=== PATIENT | female | born 1955 | race Caucasian/White ===

== ENCOUNTER 2021-12-15 10:31 | Outpatient (REF) | payer OTHER, SELFPAY ==
[2021-12-15 11:44] LABS: MANUAL DIFF FLAG NO
[2021-12-15 12:02] LABS: Basophils Percent Auto 0.5 % (0-2); Eosinophils Absolute Auto 0.2 X10*3/uL (0.0-0.4); Eosinophils Percent Auto 3.2 % (0-4); Hematocrit 35.3 % (37.0-47.0); Hemoglobin 10.9 g/dl (12.0-16.0); Imm Gran Abs Auto 0.03 X10*3/uL (0.00-0.03); Imm Gran Pct Auto 0.4 % (0.0-0.4); Lymphocytes Absolute Auto 2.5 X10*3/uL (1.2-4.9); Lymphocytes Percent Auto 32.9 % (20-40); Mean Corpuscular HGB Conc 30.9 g/dl (31.0-35.0); Mean Corpuscular Hemoglobin 24.7 pg (27.0-33.0); Mean Platelet Volume 9.7 fL (9.4-12.3); Monocytes Absolute Auto 0.3 X10*3/uL (0.1-1.2); Monocytes Percent Auto 4.5 % (2-11); Neutrophils Absolute Auto 4.4 x10*3/uL (2.0-8.3); Neutrophils Percent Auto 58.5 % (45-73); Platelet Count 325 X10*3/uL (160-400); Red Blood Count 4.41 X10*6/uL (4.20-5.50); Red Cell Distribution Width 16.9 % (11.0-16.0); White Blood Count 7.6 X10*3/uL (4.8-10.8)
[2021-12-15 12:08] LABS: D Dimer High Sensitivity 318 NG/ML
[2021-12-15 12:29] LABS: Anion Gap 12 (12-20); Blood Urea Nitrogen 15 mg/dL (9-16); Calcium 8.9 mg/dL (8.4-10.2); Carbon Dioxide 24 mmol/L (22-29); Chloride 106 mmol/L (96-108); Estimated Glomerular Filt Rate > 60; Glucose Random 91 mg/dL (60-115); Potassium 4.4 mmol/L (3.3-5.1); Sodium 138 mmol/L (135-145)
[2021-12-15 12:33] LABS: B Type Natriuretic Peptide 66 pg/mL (<100); Troponin-I High Sensitivity < 3.5 ng/L (<3.5-17.0)
[2021-12-15 12:55] LABS: Erythrocyte Sedimentation Rate 22 MM/HR (0-20)
[2021-12-18 17:11] LABS: Anti Nuclear Antibody Screen NEGATIVE (NEGATIVE)
== END 2021-12-15 10:32 | disposition home or self-care (01) ==
LOC: HO.LAB 10:31
PROVIDERS: PCP Internal Medicine; Visit Provider Hospitalist
DX: R79.89 Other specified abnormal findings of blood chemistry (principal); R06.00 Dyspnea, unspecified; G47.33 Obstructive sleep apnea (adult) (pediatric); J98.4 Other disorders of lung; M79.89 Other specified soft tissue disorders; R07.9 Chest pain, unspecified
CPT/HCPCS: 36415; 80048; 83880; 84484; 85025; 85379; 85652; 86038; 86039; 94618

== ENCOUNTER 2021-12-18 11:10 | Outpatient (REF) | payer OTHER, SELFPAY ==
--- NOTE | ~2021-12-18 | CT_ITS ---
EXAMINATION: CT ANGIOGRAM OF THE CHEST WITH AND WITHOUT CONTRAST (CT PULMONARY ANGIOGRAM FOR PE) CLINICAL INFORMATION: Reason for Exam R07.9 - Chest pain, unspecified COMPARISON: None TECHNIQUE: Prior to contrast administration, noncontrast localization images were obtained. Subsequently, multidetector volumetric imaging was performed from the thoracic inlet to below the diaphragms following the administration of 80 mL Omnipaque 350 intravenous contrast. No contrast reaction reported Sagittal, coronal, and MIP oblique sagittal reformatted images were obtained on the CT workstation, uploaded to PACS, and reviewed. This CT examination was performed using dose optimization techniques as appropriate, variously including the following: *Automated exposure control *Adjustment of mA and/or kV according to patient size (this includes techniques or standardized protocols for targeted exams where dose is matched to indication/reason for exam; i.e. extremities or head) *Use of iterative reconstruction technique Total exam dose-length product mGy-cm FINDINGS: QUALITY OF STUDY/CONTRAST BOLUS: Satisfactory. PULMONARY ARTERIES: No central or segmental pulmonary emboli. THORACIC AORTA: No aneurysm or dissection. LUNG: No focal consolidation, nodules or masses. PLEURA: No pleural effusion or pneumothorax. MEDIASTINUM: Normal heart size. No pericardial effusion. No hilar or mediastinal lymphadenopathy. No evidence of septal bowing or right heart strain. CHEST WALL/AXILLA: There is bilateral axillary lymphadenopathy. OSSEOUS STRUCTURES: There are degenerative changes of the spine. UPPER ABDOMEN: The liver may be low in attenuation. The spleen is appears upper normal in size. No reflux of contrast into the hepatic veins to suggest elevated right heart pressures. CT/CT angio chest PE protocol IMPRESSION: No evidence of pulmonary embolism. VTE: negative
[2021-12-18] MEDS: iohexoL 350 MG/ML 100 ML INFUS..BTL IV (12:00)
== END 2021-12-18 11:11 | disposition home or self-care (01) ==
LOC: HO.CT 11:10
PROVIDERS: PCP Internal Medicine; Visit Provider Hospitalist
DX: R07.9 Chest pain, unspecified (principal); R06.00 Dyspnea, unspecified; R78.89 Finding of other specified substances, not normally found in blood
CPT/HCPCS: 71275; Q9967

== ENCOUNTER → 2022-01-01 07:28 | Outpatient (REF) | payer OTHER, SELFPAY ==
--- NOTE | 2022-01-01 17:38 | PFT_ITS ---
INDICATION: Dyspnea. SPIROMETRY: The FEV1 to FVC of 89% with an FEV1 of 1.96 L, which is 78% predicted, FVC of 2.20 L which is 67% predicted. No significant response to bronchodilators noted. Maximum voluntary ventilation 84% predicted. LUNG VOLUMES: Total lung capacity 67% predicted with an expiratory reserve volume of 36% predicted. DIFFUSION CAPACITY: DLCO 67% predicted. COMPARISONS: None. INTERPRETATION: No obstructive ventilatory defects. No significant response to bronchodilators noted; however, the patient does have a restrictive ventilatory defect consistent with moderate restrictive lung disease. Therefore, underlying interstitial lung conditions need to be considered. The patient also has a decrease in the expiratory reserve volume, which is likely contributing to the restrictive lung disease as well. The patient does have mild to moderate diffusion impairment secondary to her restriction. It is reassuring that it does correct to normal when correcting for the alveolar volume. Clinical correlation warranted. MD NERY Griggs/MODL / [id number]
== END ==
LOC: HO.SL 07:28
PROVIDERS: PCP Internal Medicine; Visit Provider Hospitalist
DX: G47.33 Obstructive sleep apnea (adult) (pediatric) (principal); R06.00 Dyspnea, unspecified; J98.4 Other disorders of lung
CPT/HCPCS: 94060; 94727; 94729; 95806

== ENCOUNTER → 2022-01-15 09:17 | Outpatient (BNVA) | payer OTHER, SELFPAY | PROVIDERS: PCP Internal Medicine; Visit Provider Hospitalist | DX: R07.9 Chest pain, unspecified (principal); M79.89 Other specified soft tissue disorders; J98.4 Other disorders of lung; R06.00 Dyspnea, unspecified; G47.33 Obstructive sleep apnea (adult) (pediatric) ==

== ENCOUNTER → 2023-05-20 15:36 | Outpatient (BNVA) | payer OTHER, SELFPAY | PROVIDERS: PCP Internal Medicine; Visit Provider Hospitalist ==

== ENCOUNTER 2023-09-19 13:30 | Outpatient (AMB) | payer OTHER, SELFPAY ==
[2023-09-19 13:37] VITALS: PULSE 68; O2SAT 97; BMI 44.9
--- NOTE | 2023-09-19 13:37 | A.OFFVIS_ITS ---
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 However, for the last few months is got significantly worse. The patient was referred to Cardiology. She did have a full cardiac workup and per the patient the results were reassuring. Therefore the patient was referred to Pulmonary. On further questioning she does state that she was diagnosed with sleep apnea many years ago. She could not tolerate the therapy. She also has had issues with weight gain. She had been evaluated previously from a pulmonary standpoint and she did undergo pulmonary function studies demonstrating some degree of restrictive ventilatory defect in addition to that had a methacholine challenge which was negative for any hyperreactive airways or diagnosis of asthma still the patient has use respiratory inhalers at times. Patient also had a chest x-ray without any acute disease. We did go for 6 minutes walk test the patient became significantly winded with a dyspnea score of 8 with minimal activity. This is consistent with her symptoms. Heart rate did increase to about 100 and she was able to maintain a pulse ox of 95 percent. The patient recovered after 3 minutes improving her heart rate down to the 80s. The patient did develop chest pressure during the ambulation which resulted as terminating the walk after 100 yards. On further questioning she does have daytime drowsiness. Her Saint Stephens score is elevated 09/24. She has cardiovascular risk factors. the patient also has lower extremity edema. 01/15/2022 the patient is here for pulmon annie follow-up visit. She continues to have dyspnea on exertion. Moderate severity. Overall doing a little better. She responded well to the diuretic. In the 1st a she lost about 7 lb. The patient did have pulmonary function studies which we personally reviewed in the office. It appears that she has a moderate restrictive ventilatory defect. Due to that restriction she also has a mild to moderate diffusion impairment. No evidence of any obstruction. We did look at her CT scan of the chest demonstrating no evidence of any thromboembolic disease and no parenchymal lung disease to suggest interstitial lung disease at this time. Mainly here issue is hypo expansion of the lungs. Partly due to her body habitus. The patient also underwent a sleep study. The patient does have mild sleep apnea with an AHI of 11 events/ hour she does saturate down to the 70s briefly. They both of the sleep apnea was when she was lying supine. The patient would like to hold off on CPAP at this time. Her alternative will be positional therapy. She will look for a positional device to minimize sleeping on her back and her fairly on her left side which she did a lot better. Her blood work also reviewed demonstrating that she has anemia. The anemia could also be affecting her ability to gas exchange and subsequently affecting her diffusing capacity. 09/05/2022 the patient is here for a pulmonary follow-up visit. The patient still has similar complaints. She does complaint of dyspnea on exertion. Fzbx-an-[id number] severity. She has also developed a cough. The cough tends to be nonproductive and is irritating. Typically worse at nighttime. We did talk about considering underlying reflux disease. Patient should get risers from her bed as she is sleeping on her side and also she follow-up close reflux diet. We did talk about what to avoid and to focus on small meals and not to eat 3 hours before bedtime. In addition to that she continues to take a PPI. If no better consider barium swallow. I will also prescribe some cough medication. The patient also having significant daytime drowsiness. Her Saint Stephens score is elevated 12/24. She tried and failed CPAP in the past. I did talk to her about speaking to her dentist about considering an oral mandibular device. She will looking to. In meantime will perform an overnight oximetry while she is sleeping on her side to see if he still has any evidence of hypoxia or sleep apnea. We did review her last CT scan of the chest was back in December 23 demonstrating no evidence of any pulmonary emboli and also no parenchymal disease. 05/20/2023 the patient is here for a pulm onary follow-up visit. The patient overall has been doing fair. She has had issues where she is falling out of bed and also fallen down the stairs. She had a concussion and did have to go to the [facility] for that. She did have a CT scan of the brain which was reassuring. The patient also complains of shortness of breath. She did respond to the diuretics well but then she was only given a week worse. The patient is noticing increasing lower extremity edema her left leg more than the right. She is scheduled to see Cardiology at some point. The patient did have an overnight oximetry done demonstrating improved hypoxia while positional therapy. Seems like positional therapy is helping specially since she does not want to go back on CPAP. The patient does not have any evidence of hypoxia while sleeping on her side. The patient is taking multiple sleep aids including Ambien extended release and also gabapentin. She has been on Ambien for many years. She does have some issues with amnesia. The now with the falls that the patient should consider weaning off that medication. I did recommend she switch over to the immediate release Ambien 10 mg and then working off it that way she can wean off the medication. The patient will have follow-up in 3-4 months and will perform pulmonary function studies at that point. 09/19/2023 the patient is here for a pul monary follow-up visit. She started having worsening cough for the last few weeks. Mucus production moderate severity. Denies any fevers or chills. Likely postviral bacterial infection. Will go ahead and treat her with antibiotics. If no better she will benefit from prednisone. The patient also continues using the Ambien with good effect. Still from positional therapy with good effect. She still has lower extremity edema. She will be followed up closely with Cardiology. Likely will benefit from additional diuresis. 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) Review of Systems Const Reports daytime sleepiness and Denies night sweats ENT Denies change in voice, Denies lip swelling, Denies mouth pain, Reports nasal congestion, Reports nasal discharge and Denies tongue swelling Card Denies chest pain and Reports dyspnea on exertion Resp Reports cough and Reports dyspnea on exertion GI Denies abdominal pain Musc Denies no additional complaints Neuro Denies Neuro-related abnormal movements Psych Denies no additional complaints Hugh/Lymph Denies easy bleeding and Denies lymphadenopathy Aller/Immun Denies lip swelling and Denies tongue swelling Physical Exam Vital Signs: Last Vital Signs Pulse 68 09/19/23 13:37 Pulse Ox 97 09/19/23 13:37 Oxygen Delivery Method Room Air 09/19/23 13:37 BMI result Body Mass Index 44.9 Const General: alert Neck Neck: Yes normal visual inspection, Yes full ROM and Yes no lymphadenopathy Chest Chest palpation & inspection: normal inspection of the chest Resp Effort & Inspection: normal respiratory effort Auscultation: diminished lung sounds Cardio Rate: regular rate Rhythm: regular rhythm Heart sounds: S1 normal heart sound present and S2 normal heart sound present Peripheral pulses: femoral pulses present GI Palpation (GI): Soft to palpation and nontender Auscultation: normal bowel sounds Skin General skin exam: rashes and/or lesions noted Extrem General: Yes edema Assessment & Plan Assessment & Plan (1) Bronchitis: Code(s): J40 - Bronchitis, not specified as acute or chronic (2) Dyspnea: Code(s): R06.00 - Dyspnea, unspecified Qualifiers: Dyspnea type: dyspnea on exertion Qualified Code(s): R06.09 - Other forms of dyspnea (3) DAMARI (obstructive sleep apnea): Code(s): G47.33 - Obstructive sleep apnea (adult) (pediatric) (4) Chronic restrictive lung disease: Code(s): J98.4 - Other disorders of lung (5) Limb swelling: Code(s): M79.89 - Other specified soft tissue disorders Plan start Zpack start prednisone if no better CXR if no better continue positional therapy continue ambien as needed Benzonates as needed diuresis as tolerated GRAHAM as needed Follow-up in 3 months Orders: Orders XR chest 2V 09/19/23 R06.00 - Dyspnea, unspecified Medications: New prednisone PO daily; Take 2 tabs daily x 5 days, then 1 daily x 5 days 10 days 15 tabs 0RF azithromycin 500 mg PO DAILY 3 days 3 tabs 0RF Coding Level of Care Code Est Pt Level 4 (09494) Diagnoses Bronchitis J40 Dyspnea on exertion R06.09 Dyspnea type: dyspnea on exertion DAMARI (obstructive sleep apnea) G47.33 Chronic restrictive lung disease J98.4 Limb swelling M79.89 Time Spent (min) 17
== END 2023-09-19 13:55 | disposition home or self-care (01) ==
PROVIDERS: PCP Internal Medicine; Visit Provider Hospitalist
DX: J40 Bronchitis, not specified as acute or chronic (principal); R06.09 Other forms of dyspnea; G47.33 Obstructive sleep apnea (adult) (pediatric); J98.4 Other disorders of lung; M79.89 Other specified soft tissue disorders
CPT/HCPCS: 99214

== ENCOUNTER → 2023-09-19 13:30 | Outpatient (BNVA) | payer OTHER, SELFPAY | PROVIDERS: PCP Internal Medicine; Visit Provider Hospitalist | DX: J44.9 Chronic obstructive pulmonary disease, unspecified (principal) ==

== ENCOUNTER 2024-03-12 13:46 | Outpatient (AMB) | payer OTHER, SELFPAY ==
--- NOTE | 2024-03-12 13:56 | MHC.OFFVIS ---
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 However, for the last few months is got significantly worse. The patient was referred to Cardiology. She did have a full cardiac workup and per the patient the results were reassuring. Therefore the patient was referred to Pulmonary. On further questioning she does state that she was diagnosed with sleep apnea many years ago. She could not tolerate the therapy. She also has had issues with weight gain. She had been evaluated previously from a pulmonary standpoint and she did undergo pulmonary function studies demonstrating some degree of restrictive ventilatory defect in addition to that had a methacholine challenge which was negative for any hyperreactive airways or diagnosis of asthma still the patient has use respiratory inhalers at times. Patient also had a chest x-ray without any acute disease. We did go for 6 minutes walk test the patient became significantly winded with a dyspnea score of 8 with minimal activity. This is consistent with her symptoms. Heart rate did increase to about 100 and she was able to maintain a pulse ox of 95 percent. The patient recovered after 3 minutes improving her heart rate down to the 80s. The patient did develop chest pressure during the ambulation which resulted as terminating the walk after 100 yards. On further questioning she does have daytime drowsiness. Her Raymond score is elevated 10/24. She has cardiovascular risk factors. the patient also has lower extremity edema. 01/15/2022 the patient is here for pulmonary follow-up visit. She continues to have dyspnea on exertion. Moderate severity. Overall doing a little better. She responded well to the diuretic. In the 1st a she lost about 7 lb. The patient did have pulmonary function studies which we personally reviewed in the office. It appears that she has a moderate restrictive ventilatory defect. Due to that restriction she also has a mild to moderate diffusion impairment. No evidence of any obstruction. We did look at her CT scan of the chest demonstrating no evidence of any thromboembolic disease and no parenchymal lung disease to suggest interstitial lung disease at this time. Mainly here issue is hypo expansion of the lungs. Partly due to her body habitus. The patient also underwent a sleep study. The patient does have mild sleep apnea with an AHI of 11 events/ hour she does saturate down to the 70s briefly. They both of the sleep apnea was when she was lying supine. The patient would like to hold off on CPAP at this time. Her alternative will be positional therapy. She will look for a positional device to minimize sleeping on her back and her fairly on her left side which she did a lot better. Her blood work also reviewed demonstrating that she has anemia. The anemia could also be affecting her ability to gas exchange and subsequently affecting her diffusing capacity. 09/05/2022 the patient is here for a pulmonary follow-up visit. The patient still has similar complaints. She does complaint of dyspnea on exertion. Rqgk-qb-awhigerx severity. She has also developed a cough. The cough tends to be nonproductive and is irritating. Typically worse at nighttime. We did talk about considering underlying reflux disease. Patient should get risers from her bed as she is sleeping on her side and also she follow-up close reflux diet. We did talk about what to avoid and to focus on small meals and not to eat 3 hours before bedtime. In addition to that she continues to take a PPI. If no better consider barium swallow. I will also prescribe some cough medication. The patient also having significant daytime drowsiness. Her Raymond score is elevated 12/24. She tried and failed CPAP in the past. I did talk to her about speaking to her dentist about considering an oral mandibular device. She will looking to. In meantime will perform an overnight oximetry while she is sleeping on her side to see if he still has any evidence of hypoxia or sleep apnea. We did review her last CT scan of the chest was back in December 23 demonstrating no evidence of any pulmonary emboli and also no parenchymal disease. 05/20/2023 the patient is here for a pulmonary follow-up visit. The patient overall has been doing fair. She has had issues where she is falling out of bed and also fallen down the stairs. She had a concussion and did have to go to the [facility] for that. She did have a CT scan of the brain which was reassuring. The patient also complains of shortness of breath. She did respond to the diuretics well but then she was only given a week worse. The patient is noticing increasing lower extremity edema her left leg more than the right. She is scheduled to see Cardiology at some point. The patient did have an overnight oximetry done demonstrating improved hypoxia while positional therapy. Seems like positional therapy is helping specially since she does not want to go back on CPAP. The patient does not have any evidence of hypoxia while sleeping on her side. The patient is taking multiple sleep aids including Ambien extended release and also gabapentin. She has been on Ambien for many years. She does have some issues with amnesia. The now with the falls that the patient should consider weaning off that medication. I did recommend she switch over to the immediate release Ambien 10 mg and then working off it that way she can wean off the medication. The patient will have follow-up in 3-4 months and will perform pulmonary function studies at that point. 09/19/2023 the patient is here for a pulmonary follow-up visit. She started having worsening cough for the last few weeks. Mucus production moderate severity. Denies any fevers or chills. Likely postviral bacterial infection. Will go ahead and treat her with antibiotics. If no better she will benefit from prednisone. The patient also continues using the Ambien with good effect. Still from positional therapy with good effect. She still has lower extremity edema. She will be followed up closely with Cardiology. Likely will benefit from additional diuresis. 03/12/2024 the patient is here for a pulmonary follow-up visit. She does complaint of some increasing chest congestion and cough. Moderate severity. Also having increasing dyspnea on exertion. She has been using the Anoro inhaler. She also has a rescue inhaler. The patient also has a prescription for torsemide but she does not use it regularly. She is noticed some increasing lower extremity edema. Although she was diagnosed with arthritis and she does have asymmetrical edema primarily of the left extremity. Likely that her dyspnea is multifactorial. Although the chest congestion could represent some degree of asthmatic bronchitis. Will go ahead and switch her from Anoro to Trelegy to see if we can decrease the inflammation of the airways. the patient should also get a chest x-ray. If she worsens and for mucus gets more colored she can consider taking a Z-Brayden medications developing a infectious process the patient also urged to use her torsemide that she is having significant lower extremity edema and appears to be volume overload. 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) Review of Systems Const Reports daytime sleepiness and Denies night sweats ENT Denies change in voice, Denies lip swelling, Denies mouth pain, Reports nasal congestion, Reports nasal discharge and Denies tongue swelling Card Denies chest pain and Reports dyspnea on exertion Resp Reports chest congestion, Reports cough and Reports dyspnea on exertion GI Denies abdominal pain Musc Denies no additional complaints Neuro Denies Neuro-related abnormal movements Psych Denies no additional complaints Hugh/Lymph Denies easy bleeding and Denies lymphadenopathy Aller/Immun Denies lip swelling and Denies tongue swelling Physical Exam Vital Signs: Last Vital Signs Pulse 79 03/12/24 13:58 Pulse Ox 97 03/12/24 13:58 Oxygen Delivery Method Room Air 03/12/24 13:58 BMI result Body Mass Index 44.9 Const General: alert Neck Neck: Yes normal visual inspection, Yes full ROM and Yes no lymphadenopathy Chest Chest palpation & inspection: normal inspection of the chest Resp Effort & Inspection: normal respiratory effort Auscultation: diminished lung sounds Cardio Rate: regular rate Rhythm: regular rhythm Heart sounds: S1 normal heart sound present and S2 normal heart sound present Peripheral pulses: femoral pulses present GI Palpation (GI): Soft to palpation and nontender Auscultation: normal bowel sounds Skin General skin exam: rashes and/or lesions noted Extrem General: Yes edema Assessment & Plan Assessment & Plan (1) Bronchitis: Code(s): J40 - Bronchitis, not specified as acute or chronic (2) Dyspnea: Code(s): R06.00 - Dyspnea, unspecified Qualifiers: Dyspnea type: dyspnea on exertion Qualified Code(s): R06.09 - Other forms of dyspnea (3) DAMARI (obstructive sleep apnea): Code(s): G47.33 - Obstructive sleep apnea (adult) (pediatric) (4) Chronic restrictive lung disease: Code(s): J98.4 - Other disorders of lung (5) Limb swelling: Code(s): M79.89 - Other specified soft tissue disorders Plan start Trelegy stop Anoro start Fluticasone nasal spray CXR Zpack if no better continue positional therapy continue ambien as needed Benzonates as needed diuresis as tolerated GRAHAM as needed Follow-up in 6 months Orders: Orders XR chest 2V Today J40 - Bronchitis, not specified as acute or chronic Medications: New azithromycin 500 mg PO DAILY 5 days 5 tabs 0RF azithromycin 500 mg PO DAILY 5 tabs 0RF 5 days uxfvbmrcojl-qiubmijax-plmnbzge 200-62.5-25 mcg (Trelegy Ellipta) 1 inh inhalation DAILY 60 ea 12RF 30 days fluticasone propionate 50 mcg/actuation 2 sprays intranasal DAILY 15.8 mL 6RF 30 days J31.0 - Chronic rhinitis Coding Level of Care Code Est Pt Level 4 (21187) Diagnoses Bronchitis J40 Dyspnea on exertion R06.09 Dyspnea type: dyspnea on exertion DAMARI (obstructive sleep apnea) G47.33 Chronic restrictive lung disease J98.4 Limb swelling M79.89 Time Spent (min) 17
[2024-03-12 13:58] VITALS: PULSE 79; O2SAT 97; BMI 44.9
== END 2024-03-12 14:27 | disposition home or self-care (01) ==
PROVIDERS: PCP Internal Medicine; Visit Provider Hospitalist
DX: J40 Bronchitis, not specified as acute or chronic (principal); R06.09 Other forms of dyspnea; G47.33 Obstructive sleep apnea (adult) (pediatric); J98.4 Other disorders of lung; M79.89 Other specified soft tissue disorders
CPT/HCPCS: 99214

== ENCOUNTER → 2024-03-12 13:46 | Outpatient (BNVA) | payer OTHER, SELFPAY | PROVIDERS: PCP Internal Medicine; Visit Provider Hospitalist | DX: J44.9 Chronic obstructive pulmonary disease, unspecified (principal); R06.00 Dyspnea, unspecified ==

== ENCOUNTER 2024-09-18 08:48 | Outpatient (AMB) | payer MEDICARE, SELFPAY ==
[2024-09-18 09:00] VITALS: BP 128/70; PULSE 66; O2SAT 97; BMI 46.6
--- NOTE | 2024-09-18 09:00 | MHC.OFFVIS ---
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 However, for the last few months is got significantly worse. The patient was referred to Cardiology. She did have a full cardiac workup and per the patient the results were reassuring. Therefore the patient was referred to Pulmonary. On further questioning she does state that she was diagnosed with sleep apnea many years ago. She could not tolerate the therapy. She also has had issues with weight gain. She had been evaluated previously from a pulmonary standpoint and she did undergo pulmonary function studies demonstrating some degree of restrictive ventilatory defect in addition to that had a methacholine challenge which was negative for any hyperreactive airways or diagnosis of asthma still the patient has use respiratory inhalers at times. Patient also had a chest x-ray without any acute disease. We did go for 6 minutes walk test the patient became significantly winded with a dyspnea score of 8 with minimal activity. This is consistent with her symptoms. Heart rate did increase to about 100 and she was able to maintain a pulse ox of 95 percent. The patient recovered after 3 minutes improving her heart rate down to the 80s. The patient did develop chest pressure during the ambulation which resulted as terminating the walk after 100 yards. On further questioning she does have daytime drowsiness. Her Bergholz score is elevated 09/24. She has cardiovascular risk factors. the patient also has lower extremity edema. 09/18/2024 the patient is here for a pulmonary follow-up visit. She does complaint of some increasing chest congestion and cough. Moderate severity. Also having increasing dyspnea on exertion. She has been using the Anoro inhaler. She also has a rescue inhaler. The patient also has a prescription for torsemide but she does not use it regularly. She is noticed some increasing lower extremity edema. Although she was diagnosed with arthritis and she does have asymmetrical edema primarily of the left extremity. Likely that her dyspnea is multifactorial. Although the chest congestion could represent some degree of asthmatic bronchitis. Will go ahead and switch her from Anoro to Trelegy to see if we can decrease the inflammation of the airways. the patient should also get a chest x-ray. Based on her chronic bronchitis she will be a good candidate for daliresp. 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) Review of Systems Const Reports daytime sleepiness and Denies night sweats ENT Denies change in voice, Denies lip swelling, Denies mouth pain, Reports nasal congestion, Reports nasal discharge and Denies tongue swelling Card Denies chest pain and Reports dyspnea on exertion Resp Reports chest congestion, Reports cough and Reports dyspnea on exertion GI Denies abdominal pain Musc Denies no additional complaints Neuro Denies Neuro-related abnormal movements Psych Denies no additional complaints Hugh/Lymph Denies easy bleeding and Denies lymphadenopathy Aller/Immun Denies lip swelling and Denies tongue swelling Physical Exam Vital Signs: Last Vital Signs Pulse 66 09/18/24 09:00 BP 128/70 09/18/24 09:00 Pulse Ox 97 09/18/24 09:00 Oxygen Delivery Method Room Air 09/18/24 09:00 BMI result Body Mass Index 46.6 Const General: alert Neck Neck: Yes normal visual inspection, Yes full ROM and Yes no lymphadenopathy Chest Chest palpation & inspection: normal inspection of the chest Resp Effort & Inspection: normal respiratory effort Auscultation: diminished lung sounds Cardio Rate: regular rate Rhythm: regular rhythm Heart sounds: S1 normal heart sound present and S2 normal heart sound present Peripheral pulses: femoral pulses present GI Palpation (GI): Soft to palpation and nontender Auscultation: normal bowel sounds Skin General skin exam: rashes and/or lesions noted Extrem General: Yes edema Assessment & Plan Assessment & Plan (1) Bronchitis: Code(s): J40 - Bronchitis, not specified as acute or chronic Category: Medical (2) Dyspnea: Code(s): R06.00 - Dyspnea, unspecified Category: Medical Qualifiers: Dyspnea type: dyspnea on exertion Qualified Code(s): R06.09 - Other forms of dyspnea (3) DAMARI (obstructive sleep apnea): Code(s): G47.33 - Obstructive sleep apnea (adult) (pediatric) Category: Medical (4) Chronic restrictive lung disease: Code(s): J98.4 - Other disorders of lung Category: Medical (5) Limb swelling: Code(s): M79.89 - Other specified soft tissue disorders Category: Medical Plan continue Trelegy Fluticasone nasal spray start Daliresp CXR continue positional therapy continue ambien as needed Benzonates as needed diuresis as tolerated GRAHAM as needed Follow-up in 6 months Orders: Orders XR chest 2V 09/18/24 R06.09 - Other forms of dyspnea Medications: New roflumilast (Daliresp) 250 mcg PO DAILY 30 tabs 11RF 30 days J44.9 - Chronic obstructive pulmonary disease, unspecified Coding Level of Care Code Est Pt Level 4 (78732) Diagnoses Bronchitis J40 Dyspnea on exertion R06.09 Dyspnea type: dyspnea on exertion DAMARI (obstructive sleep apnea) G47.33 Chronic restrictive lung disease J98.4 Limb swelling M79.89 Time Spent (min) 16
== END 2024-09-18 09:24 | disposition home or self-care (01) ==
PROVIDERS: PCP Internal Medicine; Visit Provider Hospitalist
DX: J40 Bronchitis, not specified as acute or chronic (principal); R06.09 Other forms of dyspnea; G47.33 Obstructive sleep apnea (adult) (pediatric); J98.4 Other disorders of lung; M79.89 Other specified soft tissue disorders
CPT/HCPCS: 99214

== ENCOUNTER → 2024-09-18 08:48 | Outpatient (BNVA) | payer MEDICARE, SELFPAY | PROVIDERS: PCP Internal Medicine; Visit Provider Hospitalist | DX: R06.00 Dyspnea, unspecified (principal); J98.4 Other disorders of lung; J40 Bronchitis, not specified as acute or chronic; G47.33 Obstructive sleep apnea (adult) (pediatric); M79.89 Other specified soft tissue disorders | CPT/HCPCS: 99212 ==

== ENCOUNTER 2025-03-19 12:52 | Outpatient (AMB) | payer MEDICARE, SELFPAY ==
--- NOTE | 2025-03-19 12:57 | MHC.OFFVIS ---
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 However, for the last few months is got significantly worse. The patient was referred to Cardiology. She did have a full cardiac workup and per the patient the results were reassuring. Therefore the patient was referred to Pulmonary. On further questioning she does state that she was diagnosed with sleep apnea many years ago. She could not tolerate the therapy. She also has had issues with weight gain. She had been evaluated previously from a pulmonary standpoint and she did undergo pulmonary function studies demonstrating some degree of restrictive ventilatory defect in addition to that had a methacholine challenge which was negative for any hyperreactive airways or diagnosis of asthma still the patient has use respiratory inhalers at times. Patient also had a chest x-ray without any acute disease. We did go for 6 minutes walk test the patient became significantly winded with a dyspnea score of 8 with minimal activity. This is consistent with her symptoms. Heart rate did increase to about 100 and she was able to maintain a pulse ox of 95 percent. The patient recovered after 3 minutes improving her heart rate down to the 80s. The patient did develop chest pressure during the ambulation which resulted as terminating the walk after 100 yards. On further questioning she does have daytime drowsiness. Her [place] score is elevated 09/24. She has cardiovascular risk factors. the patient also has lower extremity edema. 09/18/2024 the patient is here for a pulmonary follow-up visit. She does complaint of some increasing chest congestion and cough. Moderate severity. Also having increasing dyspnea on exertion. She has been using the Anoro inhaler. She also has a rescue inhaler. The patient also has a prescription for torsemide but she does not use it regularly. She is noticed some increasing lower extremity edema. Although she was diagnosed with arthritis and she does have asymmetrical edema primarily of the left extremity. Likely that her dyspnea is multifactorial. Although the chest congestion could represent some degree of asthmatic bronchitis. Will go ahead and switch her from Anoro to Trelegy to see if we can decrease the inflammation of the airways. the patient should also get a chest x-ray. Based on her chronic bronchitis she will be a good candidate for daliresp. 03/19/2025 the patient is here for a pulmonary follow-up visit. She doing very well from a respiratory status. Her respiratory regimen has been working well for her. She is tolerating the Daliresp 250 mcg and also the Trelegy. She also continues with respiratory medications. She has not had to use her rescue inhaler and has not required any prednisone which is reassuring. Will go ahead and optimize her Daliresp by increasing her dose to the therapeutic dose at this time. The patient is also working on weight management. She has already lost about 25 lb with exercise in lifestyle changes. The patient however his having some issues with sciatica and knee pain and hip pain. She is going to be following up with a doctor regarding that. In the meantime will follow-up in a year's time if she has any issues prior to that she will call for an earlier assessment. 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) Review of Systems Const Denies chills, Denies fatigue, Denies fever(s), Denies weight gain and Denies weight loss ENT Denies dizziness, Denies lip swelling and Denies tongue swelling Card Denies chest pain, Denies leg edema, Denies lightheadedness, Denies palpitations, Denies dyspnea on exertion, Denies orthopnea and Denies other Resp Denies cough and Denies dyspnea on exertion GI Denies hematochezia and Denies change in stool character Musc Denies abnormal gait, Denies muscle weakness, Denies numbness, Denies radiating pain into limb and Denies tingling Neuro Denies abnormal gait, Denies dizziness, Denies numbness and Denies tingling Psych Denies no additional complaints Endo Denies fatigue and Denies palpitations Hugh/Lymph Denies easy bleeding and Denies lymphadenopathy Aller/Immun Denies lip swelling and Denies tongue swelling Physical Exam Vital Signs: Last Vital Signs Pulse 65 03/19/25 12:58 BP 130/86 03/19/25 12:58 Pulse Ox 95 03/19/25 12:58 Oxygen Delivery Method Room Air 03/19/25 12:58 BMI result Body Mass Index 43.7 Const General: alert Neck Neck: Yes normal visual inspection, Yes full ROM and Yes no lymphadenopathy Chest Chest palpation & inspection: normal inspection of the chest Resp Effort & Inspection: normal respiratory effort Auscultation: diminished lung sounds Cardio Rate: regular rate Rhythm: regular rhythm Heart sounds: S1 normal heart sound present and S2 normal heart sound present Peripheral pulses: femoral pulses present GI Palpation (GI): Soft to palpation and nontender Auscultation: normal bowel sounds Skin General skin exam: rashes and/or lesions noted Extrem General: Yes edema Assessment & Plan Assessment & Plan (1) Bronchitis: Code(s): J40 - Bronchitis, not specified as acute or chronic Category: Medical (2) Dyspnea: Code(s): R06.00 - Dyspnea, unspecified Category: Medical Qualifiers: Dyspnea type: dyspnea on exertion Qualified Code(s): R06.09 - Other forms of dyspnea (3) DAMARI (obstructive sleep apnea): Code(s): G47.33 - Obstructive sleep apnea (adult) (pediatric) Category: Medical (4) Chronic restrictive lung disease: Code(s): J98.4 - Other disorders of lung Category: Medical (5) Limb swelling: Code(s): M79.89 - Other specified soft tissue disorders Category: Medical Plan continue Trelegy Fluticasone nasal spray continue Daliresp, increase 250->500mcg continue positional therapy continue ambien as needed Benzonates as needed diuresis as tolerated GRAHAM as needed Follow-up in 8-12 months Medications: New roflumilast (Daliresp) 500 mcg PO DAILY 30 tabs 11RF 30 days Discontinued roflumilast (Daliresp) Discontinued Reason: Doctor's Order 250 mcg PO DAILY 30 days 30 tabs 11RF J44.9 - Chronic obstructive pulmonary disease, unspecified Coding Level of Care Code Est Pt Level 4 (36742) Complex EM visit Add On G2211 Diagnoses Bronchitis J40 Dyspnea on exertion R06.09 Dyspnea type: dyspnea on exertion DAMARI (obstructive sleep apnea) G47.33 Chronic restrictive lung disease J98.4 Limb swelling M79.89 Time Spent (min) 16
[2025-03-19 12:58] VITALS: BP 130/86; PULSE 65; O2SAT 95; BMI 43.7
--- OUTSIDE RECORDS SUMMARY | 2025-03-19 13:26 | XMS_ITS | Clinical Summary ---
Author Organization [facility] Address [address] [place] [address] Care Team Providers Care Speech Lang Path Therapist Name Role Phone Timmy Hill MD Primary Care Provider [phone] Medical History Medical History Date Comments Hypercholesterolemia DX:Hypercho lesterolemia Family history of cardiovascular disease DX:Family history of cardiovascular disease Family History Medical History Relation Name Comments Heart attack Brother 1 Heart attack Brother 2 Other: heart disease Father Hypertension Mother Other cancer Mother Relation Name Status Comments Brother 1 Brother 2 Father Mother Social History Tobacco Use Types Packs/Day Years Used Date Smoking Tobacco: Never Smokeless Tobacco: Never Alcohol Use Standard Drinks/Week Comments No 0 (1 standard drink = 0.6 oz pur e alcohol) Comments Unknown Sex and Gender Information Value Date Recorded Sex Assigned at Not on file Legal Sex Female 1:54 AM EST Gender Identity Not on file Sexual Orientation Not on file Obstetrics History Last Filed Vital Signs Vital Sign Reading Time Taken Comments Blood Pressure 122/84 05/24/2022 8:41 AM EDT Pulse 111 03/19/2022 2:50 PM EDT Temperature - - Respiratory Rate - - Oxygen Saturation - - Inhaled Oxygen Concentration - - Weight 127 kg (279 lb) 05/24/2022 8:41 AM EDT Height 165.1 cm (5' 5 ) 05/24/2022 8:41 AM EDT Body Mass Index 46.43 05/24/2022 8:41 AM EDT Plan of Treatment Health Maintenance Due Date Last Done Comments Breast Cancer Screening 1955 DTaP,Tdap,and Td Vaccines (1 - Tdap) 1975 Pneumococcal Vaccine: 50+ Ye ars (1 of 1 - PCV) 2006 Zoster Vaccines (1 of 2) 2006 RSV Immunization Adult Patie nts (1 - Risk 60-74 years 1-dose series) 2016 Cholesterol Screening (Lipid Panel) 11/10/2022 Colorectal Cancer Screening: Colonoscopy 11/10/2022 Depression Screening 11/10/2022 Falls Risk Assessment 11/10/2022 Hepatitis C Screening 11/10/2022 Osteoporosis Screening (Bone Density Screening) 11/10/2022 Social Influencers of Health Screening 11/10/2022 COVID-19 Vaccine (2023-2 5 season) 2024 Influenza Vaccine (Season Ended) 2025 HIB Vaccines Aged Out No longer eligi ble based on patient's age to complete this topic HPV Vaccines Aged Out No longer eligi ble based on patient's age to complete this topic Hepatitis A Vaccines Aged Out No long er eligible based on patient's age to complete this topic Hepatitis B Vaccines Aged Out No long er eligible based on patient's age to complete this topic IPV Vaccines Aged Out No longer eligi ble based on patient's age to complete this topic MMR Vaccines Aged Out No longer eligi ble based on patient's age to complete this topic Meningococcal ACWY Vaccine Aged Out N o longer eligible based on patient's age to complete this topic Meningococcal B Vaccine Aged Out No l onger eligible based on patient's age to complete this topic RSV Immunization Patients Un khari 20 months Aged Out No longer eligible b ased on patient's age to complete this topic Varicella Vaccines Aged Out No longer eligible based on patient's age to complete this topic Care Teams Speech Lang Path Therapist Relationship Specialty Start Date End Date Timmy Hill MD PCP - General 12/02/1992
== END 2025-03-19 13:41 | disposition home or self-care (01) ==
LOC: HO.HPS 12:53
PROVIDERS: PCP Internal Medicine; Visit Provider Hospitalist
DX: J40 Bronchitis, not specified as acute or chronic (principal); R06.09 Other forms of dyspnea; G47.33 Obstructive sleep apnea (adult) (pediatric); J98.4 Other disorders of lung; M79.89 Other specified soft tissue disorders
CPT/HCPCS: 99214; G2211

== ENCOUNTER → 2025-03-19 12:52 | Outpatient (BNVA) | payer MEDICARE, SELFPAY | PROVIDERS: PCP Internal Medicine; Visit Provider Hospitalist | DX: G47.33 Obstructive sleep apnea (adult) (pediatric) (principal); R06.09 Other forms of dyspnea; J40 Bronchitis, not specified as acute or chronic; J98.4 Other disorders of lung; M79.89 Other specified soft tissue disorders | CPT/HCPCS: 99212 ==